=== PATIENT | male | born 2000 | race American Indian/Alaskan Native ===

== ENCOUNTER 2019-12-28 20:18 | Emergency (ER) | payer SELFPAY ==
[2019-12-28 20:26] VITALS: BP 122/59
--- NOTE | 2019-12-28 21:03 | Event Note ---
ED Screening Note ED Screening Note: diffuse rash that began two days ago states it does itch used a new lotion has not used anything for the rash no SOB, JOSE, no throat swelling or closing sensation PMHx none no known allergies
--- NOTE | 2019-12-28 21:07 | Emergency Department Report ---
Chief Complaint: Skin Rash Stated Complaint: LT ARM PROBLEM Time Seen by Provider: 12/28/19 20:58 - HPI History of Present Illness: Patient is a 19-year-old male presents emergency room with complaints of diffuse rash that began two days ago states it does itch used a new lotion has not used anything for the rash no SOB, JOSE, no throat swelling or closing sensation He denies anyone else with the same rash PMHx none no known allergies Vitals are normal On exam: Multiple skin colored papules with central umbilication present to the upper extremities, trunk, mons pubis [employer] [address] advised pt may use cortisone ointment over the counter to help with itching. may take benadryl but will cause drowsiness so do not drive or operate heavy machinery while taking. may take zyrtec during the day for itching. follow up with a primary care doctor. follow up with a social contact worker. it is very important that you follow up. return to the emergency room for any new or worsening symptoms. Discussed in detail with the patient the importance of follow-up for further evaluation Patient given multiple primary care doctors and social contact worker Medical screening examination performed and there is no threat to life or limb at this time - Exam Vital Signs: Vital Signs 12/28/19 20:25 Temperature 98.2 F Pulse Rate 71 Respiratory 18 Rate Blood Pressure 122/59 O2 Sat by Pulse 98 Oximetry MSE screening note: Focused history and physical exam performed. ED Disposition for MSE Clinical Impression: Rash Disposition: Z- MED SCREENING EXAM-LEFT Is pt being admited?: No Does the pt Need Aspirin: No Condition: Stable Instructions: Molluscum Contagiosum (ED), Acute Rash (ED) Additional Instructions: may use cortisone ointment over the counter to help with itching. may take b enadryl but will cause drowsiness so do not drive or operate heavy machinery while taking. may take zyrtec during the day for itching. follow up with a primary care doctor. follow up with a social contact worker. it is very important that you follow up. return to the emergency room for any new or worsening symptoms. [facility] Address: [address] [place] [id number] Referrals: BENEDICT ERICKSON MD [Staff Physician] - 3-5 Days [facility] [Provider Group] - 3-5 Days [facility] [Outside] - 3-5 Days LAURA WEBSTER MD [Staff Physician] - 3-5 Days SOFÍA ELISE MD [Staff Physician] - 3-5 Days Time of Disposition: 21:05 Print Language: GEORGIAN
== END 2019-12-28 21:14 | disposition left against medical advice (07) ==
LOC: ED 20:18
DX: R21 Rash and other nonspecific skin eruption (principal); Z53.21 Procedure and treatment not carried out due to patient leaving prior to being seen by health care provider
CPT/HCPCS: 99282